=== PATIENT | female | born 1970 | race Caucasian/White ===

== ENCOUNTER 2018-10-20 | Emergency (ER) | payer OTHER ==
--- NOTE | 2018-10-20 22:27 | ED ---
General Adult HPI - General Chief complaint: Psychiatric Symptoms Stated complaint: overdose Time Seen by Provider: 10/20/18 21:45 Source: patient, EMS Mode of arrival: EMS Limitations: no limitations - History of Present Illness Initial comments: Shannan is a 47yo Female with PMH of substance abuse who presents to the emergency department today for evaluation possible overdose. Patient reports that she uses heroin on a daily basis, today she used and apparently became unresponsive her roommate called 911. EMS arrived on scene the patient had pulses depressed respirations pinpoint pupils. Patient was treated with IV Narcan and subsequently became awake alert and oriented. Patient denied any suicidality though she did admit that she is depressed, patient reports that she's never received any therapy or treatment after her 's and 2011 and she feels depressed. Patient also states that she is depressed over being addicted to heroin. She states she would like to quit. She would like outpatient resources. - Related Data Home Medications Medication Instructions Recorded Confirmed No Known Home Medications 10/20/18 10/20/18 Allergies Allergy/AdvReac Type Severity Reaction Status Date / Time No Known Allergies Allergy Verified 10/20/18 22:08 Review of Systems ROS Statement: Those systems with pertinent positive or pertinent negative responses have been documented in the HPI. ROS Other: All systems not noted in ROS Statement are negative. Past Medical History Past Medical History: No Reported History History of Any Multi-Drug Resistant Organisms: None Reported Past Surgical History: Section, Cholecystectomy Past Psychological History: Depression Smoking Status: Former smoker Past Alcohol Use History: Occasional Past Drug Use History: Heroin, IV Drug Use General Exam - General Exam Comments Initial Comments: Physical Exam GENERAL: Patient is well-developed and well-nourished. Patient is nontoxic and well- hydrated and is in no distress. HENT: Normocephalic, Atraumatic. EYES: PERRL, EOMI PULMONARY: Unlabored respirations. No audible rales rhonchi or wheezing was noted. CARDIOVASCULAR: There is a regular rate and rhythm without any murmurs gallops or rubs. ABDOMEN: Soft and nontender with normal bowel sounds. SKIN: Skin is clear with no lesions or rashes and otherwise unremarkable. : Deferred NEUROLOGIC: Patient is alert and oriented x3. Moving all extremities spontaneously MUSCULOSKELETAL: Normal extremities with adequate strength and full range of motion. No lower extremity swelling or edema. No calf tenderness. PSYCHIATRIC: Normal psychiatric evaluation Limitations: no limitations Course Vital Signs 10/20/18 10/20/18 21:40 22:58 Temperature 98.5 F Pulse Rate 112 H 92 Respiratory 18 18 Rate Blood Pressure 136/79 112/71 O2 Sat by Pulse 100 Oximetry Medical Decision Making - Medical Decision Making The patient was seen and evaluated, history is obtained on the patient and EMS and apparent accidental overdose on heroin, she was revived with Narcan she is now awake alert and oriented. Patient denies any suicidal or homicidal ideation. Patient was observed in the emergency department for a number of hours, she sl eeping comfortably but wakes to voice is appropriate and interactive continues to deny suicidal or homicidal ideation. Patient will be given printed referrals for outpatient psychiatric and substance abuse counseling. 3:30 AM patient is stable for discharge home however patient had arrived to the emergency department with minimal clothing and no shoes, she is awaiting her friend bring her shoes and clothing for discharge. Disposition Clinical Impression: Accidental heroin overdose Disposition: HOME SELF-CARE Condition: Stable Instructions (If sedation given, give patient instructions): Narcotic Use Disorder (ED) Is patient prescribed a controlled substance at d/c from ED?: No Referrals: None,Stated [Primary Care Provider] - 1-2 days
== END 2018-10-21 06:42 | disposition home or self-care (01) ==
CPT/HCPCS: 82075; 99284

== ENCOUNTER → 2019-12-12 | Outpatient (CLI) | payer OTHER ==
--- NOTE | 2019-12-12 09:23 | CT ---
EXAMINATION TYPE: CT lumbar spine wo con DATE OF EXAM: 12/12/2019 9:03 AM COMPARISON: None. HISTORY: Rt leg pain CT DLP: 757.3 mGycm Automated exposure control for dose reduction was used. Unenhanced CT of the lumbar spine was performed. Bone and soft tissue window settings are submitted as well as coronal and sagittal reconstructions. There are 5 lumbar type vertebra identified. Lumbar spine shows satisfactory alignment without eviden ce of acute fracture or dislocation. Vertebral body heights and disc space heights are fairly well-ma intained. Spinal canal grossly preserved on sagittal images. Minimal multilevel anterior and lateral spurring. Axial images at T12-L1 and L1-L2 levels are felt within normal limits. Axial images at L2-L3 and L3-L4 levels show mild broad disc bulges minimally effacing anterior sac, b ilateral neural foramina are patent. Axial images at L4-L5 level mild facet arthropathy bilaterally. There is mild broad-based posterior d isc protrusion. There is mild effacement of the posterior lateral thecal sac in the anterior thecal s ac on axial image 47. There is mild left-sided inferior neural foraminal narrowing. Axial images at the L5-S1 levels with mild facet arthropathy bilaterally. There is left paracentral d isc protrusion may be encroaching along the central left S1 nerve axial image 57. Bilateral neural fo ramina are patent. IMPRESSION: Mild degenerative changes in mid to lower lumbar spine as detailed above, no significant right-sided herniation is seen to account for patient's right-sided radiculopathy type symptoms.
== END | disposition home or self-care (01) ==
LOC: RADCTMAIN 08:01
PROVIDERS: ATTEND Family Medicine
DX: M47.816 Spondylosis without myelopathy or radiculopathy, lumbar region (principal); M47.817 Spondylosis without myelopathy or radiculopathy, lumbosacral region
CPT/HCPCS: 72131

== ENCOUNTER → 2019-12-26 | Outpatient (CLI) | payer OTHER ==
[2019-12-26 07:53] VITALS: BP 153/83; PULSE 86; RESP 18; TEMP 98.3
--- NOTE | 2019-12-26 08:15 | P.CONS ---
History of Present Illness - Reason for Consult Consult date: 12/26/19 - Chief Complaint right leg pain - History of Present Illness his is a 49-year-old lady with history of chronic lower back pain for at least 2 years with no precipitating events. The pain starts in the right buttock and goes down to the anterior thigh area to a few inches beneath her right knee. The patient occasionally feels pain in her back however her most intense pain is in the right leg. The patient denies any numbness or tingling in the right leg. She feels mild weakness in the leg with prolonged walking. Her pain gets worse by ambulation, walking and improves by sitting down and taking Motrin. The patient has never tried any injections on her back previously or any physical therapy. She denies any bowel or bladder dysfunction she also denies any weight loss. This pain occasionally wakes her up at night however it is not a main complaint. the patient still works full-time in a factory. Review of Systems Constitutional: Denies chills, Denies fever Ears, nose, mouth and throat: Denies headache, Denies sore throat Respiratory: Denies cough Musculoskeletal: Reports as per HPI Neurological: Reports as per HPI Endocrine: Denies fatigue, Denies weight change Past Medical History Past Medical History: No Reported History Additional Past Medical History / Comment(s): pain right buttocks radiating to right groin and down to right knee. History of Any Multi-Drug Resistant Organisms: None Reported Past Surgical History: Section, Cholecystectomy Past Anesthesia/Blood Transfusion Reactions: No Reported Reaction Past Psychological History: No Psychological Hx Reported Smoking Status: Former smoker Past Alcohol Use History: None Reported Additional Past Alcohol Use History / Comment(s): quit smoking 10 yrs ago (2009), smoked 1 pack q 3-4 days., smoked off and on since 19 yrs old. Past Drug Use History: None Reported Additional Drug Use History / Comment(s): denies - Past Family History Mother Family Medical History: No Reported History Medications and Allergies Home Medications Medication Instructions Recorded Confirmed Type No Known Home Medications 10/20/18 12/26/19 History Allergies Allergy/AdvReac Type Severity Reaction Status Date / Time No Known Allergies Allergy Verified 12/26/19 07:50 Physical Exam Vitals: Vital Signs Temp Pulse Resp BP 12/26/19 07:51 98.3 F 86 18 153/83 - Constitutional General appearance: obese - EENT Eyes: PERRLA - Integumentary Integumentary: no calor, no cellulitis, no cyanotic, no decreased turgor, no flushed, no jaundiced, no normal, no normal turgor, no pale, no rash, no ulcer - Neurologic neuro exam of the lower extremities showed: Decreased right knee reflex compared to the left side,absent left ankle reflex and normal right ankle reflex. Normal muscle strength in the lower extremities for knee flexion and extension and ankle flexion and extension and also for hip flexion bilaterally. No greater trochanter tenderness on the right side. No pain with internal and external rotation of the hip joints. Michi's test increases her thigh pain but did not cause any back pain. straight leg raising test negative bilaterally. No tenderness in the lumbar paravertebral musculature. Neurologic: CNII-XII intact - Psychiatric Psychiatric: A&O x's 3, appropriate affect, intact judgment & insight Results Results: lumbar spine computed tomography scan showed disc bulging at the L5-S1 level touching the left S1 nerve root. It also showed mild facet arthropathy at multiple levels. There was no pressure or any nerve roots on the right side which is the symptomatic side of the patient. Assessment and Plan Plan: this is a 49-year-old lady with history of right leg pain which starts from the right buttock down to a few inches beneath the right knee with no paresthesia and no significant weakness in the right lower extremity. The patient's computed tomography scan showed few changes on the left side which might explain the absence of her left ankle reflex however does not show any compression of a nerve root on the right side When the reason for that might be that the computed tomography scan is not a good mode to detect soft tissue changes and I think an MRI on the lumbar spine may be betterfor this reason. The patient may benefit from a course of physical therapy however she would like to try the injection first which I offered as lumbar epidural steroid injection at the L3 4 or L4 5 levels in the right paramedian approach under fluoroscopic guidance. If this injection does not help the patient then I might need to order an MRI on the lumbar spine. the patient is healthy otherwise she denies any history of diabetes and she denies taking any anticoagulants. I thank you for the referral
== END | disposition home or self-care (01) ==
LOC: PNWHC3 07:30
PROVIDERS: ATTEND Anesthesiology
DX: M79.661 Pain in right lower leg (principal); Z87.891 Personal history of nicotine dependence
CPT/HCPCS: 99211

== ENCOUNTER 2020-02-19 07:15 | Day surgery (SDC) | payer OTHER ==
[2020-02-15 15:12] VITALS: BMI 34.3
[~2020-02-19 07:15] MED LIST: LACTATED RINGERS 1,000 ML IV SCH
[2020-02-19 07:42] VITALS: TEMP 97.5
[2020-02-19] MEDS ORDERED: LIDOCAINE 1% (10MG/ML) FOR IV START INTRADERMA ONE (07:53)
[2020-02-19] MEDS ORDERED: ROPIVACAINE 5MG/ML 20ML VIAL ONE (08:37)
[2020-02-19] MEDS ORDERED: TRIAMCINOLONE ACETONIDE 40 MG/ML 1 ML VIAL ONE (08:37)
[2020-02-19] MEDS ORDERED: IOPAMIDOL M200 10 ML VIAL ONE (08:37)
[2020-02-19] MEDS ORDERED: MIDAZOLAM 2 MG/2 ML VIAL ONE (08:37)
[2020-02-19] MEDS ORDERED: fentaNYL (PF) 50 MCG/ML 2 ML AMP ONE (08:37)
--- NOTE | 2020-02-19 08:49 | P.PCN ---
Date of Procedure: 02/19/20 Surgeon: Pablo Azul Pathology: none sent Condition: stable Disposition: PACU Description of Procedure: PREOPERATIVE DIAGNOSIS: 1-Lumbar radiculopathy 2- Lumber Degenerative Disc Diseases. POSTOPERATIVE DIAGNOSIS: 1-Lumbar radiculopathy. 2-Lumbar Degenerative Disc Diseases PROCEDURE 1. Lumbar epidural steroid injection under fluoroscopic guidance at the L4-5 level in the right paramedian approach. 2. Lumbar epidurogram. ANESTHESIA: Local with 1% lidocaine; and IV moderate conscious sedation with Versed and fentanyl EBL: Minimal PROCEDURE INDICATION: The patient with low back pain and radiculitis symptoms unresponsive to conservative treatment. Fluoroscopy was used to optimize visualization of the needle placement and to maximize safety. PROCEDURE DESCRIPTION / TECHNIQUE: The patient was seen and identified in the preoperative area. Risks, benefits, complications including but not limited to infections ,bleeding ,allergic reaction to the medications ,nerve damage and not complete pain relief , and alternatives were discussed with the patient. The patient agreed to proceed with the procedure and signed the consent. IV was started, and vital signs were stable. Patient was taken to the OR and time out was completed. The patient was placed in the prone position on procedure table and a pillow was placed under the abdomen to reduce lumbar lordosis. The lumbosacral area was prepped and draped in the usual sterile fashion with ChloraPrep.Patient was closely monitored during the procedure. Conscious sedation was used during the procedure to decrease patients anxiety. Vital signs were monitered during the entire procedure. Using anterior-posterior fluoroscopy, the L4-5 interlaminar space was identified and the skin over this site was marked and then infiltrated with 1% lidocaine subcutaneously. Subsequently, a 20-gauge Tuohy epidural needle was inserted and advanced toward the epidural space using the Loss of resistance to air technique and guided by AP and lateral fluoroscopy. The correct needle position in the epidural space was verified with the injection of 1 mL of the water soluble contrast dye Omnipaque 180 contrast and observing an excellent epidurogram with the epidural spread of the dye, after negative aspiration for blood and CSF and in the absence of paresthesias. Again after negative aspiration, a 7 ml mixture containing 80 mg of Kenalog and 5 ml of preservative free Normal Saline, and 1 ml of preservative free ropivacaine 0.5% solution was injected and a washout of epidurogram was seen. Needle was withdrawn intact, skin was cleansed, and bandages were applied. patient tolerated procedure well and was transferred to PACU in stable condition.A copy of the needle placement picture was saved to the fluoroscopy machine. COMPLICATIONS: None DISPOSITION / PLANS: The patient was placed in a supine position and transferred to the recovery area in a stable condition for observation. There was no evidence of lower extremity motor or sensory deficit after the procedure. Patient was discharged from the recovery room after meeting discharge criteria. Home discharge instructions were given to the patient by the staff. The patient was reexamined prior to discharge. The patient will schedule a follow up in the clinic in 2-4 weeks.
[2020-02-19] MEDS ORDERED: IV FLUID CONTINUATION 1,000 ML IV ONE (08:52)
[2020-02-19 08:55] VITALS: RESP 18
[2020-02-19 09:11] VITALS: BP 127/82; PULSE 62
--- NOTE | 2020-02-19 12:49 | FL ---
Fluoroscopy INDICATION: Pain FINDINGS: Fluoroscopy time: 4 seconds. Images obtained: 2. IMPRESSIONS: 1. Documentation of fluoroscopy.
== END 2020-02-19 09:27 | disposition home or self-care (01) ==
LOC: ORPAIN 07:15
PROVIDERS: ATTEND Anesthesiology
DX: M51.16 Intervertebral disc disorders with radiculopathy, lumbar region (principal); E66.9 Obesity, unspecified; Z68.33 Body mass index [BMI] 33.0-33.9, adult
CPT/HCPCS: 84703; 62323; J2250; J3301; J3010; Q9966; J2795

== ENCOUNTER → 2020-03-18 | Day surgery (SDC) | payer OTHER ==
[2020-03-12 09:36] VITALS: BMI 33.8
[~2020-03-18] MED LIST changes: +IOPAMIDOL M200 10 ML VIAL ONE; +LACTATED RINGERS 1,000 ML IV ONE; -LACTATED RINGERS 1,000 ML IV SCH; +LIDOCAINE 1% (10MG/ML) FOR IV START INTRADERMA ONE; +MIDAZOLAM 2 MG/2 ML VIAL ONE; +fentaNYL (PF) 50 MCG/ML 2 ML AMP ONE; +methylPREDNISolone ACETATE 40 MG/ML 1 ML VIAL ONE
[2020-03-18 11:14] VITALS: RESP 16; TEMP 98
--- NOTE | 2020-03-18 11:26 | P.OP ---
Date of Procedure: 03/18/20 Preoperative Diagnosis: Lumbar radiculopathy Postoperative Diagnosis: Lumbar radiculopathy Procedure(s) Performed: Lumbar L4-L5 epidural steroid injection under fluoroscopic Anesthesia: MAC Surgeon: Gerry Singh Estimated Blood Loss (ml): 0 IV fluids (ml): 100 Urine output (ml): 0 Pathology: none sent Condition: stable Disposition: PACU Description of Procedure: Procedure: The patient was seen and identified in the preoperative area. Risks, benefits, complications, and alternatives were discussed with the patient. The patient agreed to proceed with the procedure and signed the consent. IV was started, and vital signs were stable. Patient was taken to the procedure area, and time out was completed. The patient was placed in the prone position on procedure table and a pillow was placed under the abdomen to reduce lumbar lordosis. The lumbosacral area was prepped and draped in the usual sterile fashion. Critical pause was taken. Vital signs were closely monitored during the procedure. Using anterior-posterior fluoroscopy, the L4-L5 interlaminar space was identified, and skin and deeper tissues were localized with 1% lidocaine. Using anterior-posterior fluoroscopy, lateral fluoroscopy, and [id number] technique, a 20 gauge 3.5 Tuohy epidural needle entered the epidural space. After negative aspiration of CSF and blood with no paresthesias, 1 ml of Ezmzof695 contrast dye was injected and an excellent epidurogram was seen. Again after negative aspiration of CSF and blood with no paresthesias, 10 mL of block solution was injected into the epidural space. Block solution contained 80 mg of Depo-Medrol, and 9 mL of preservative-free normal saline. Needle was withdrawn intact, skin was cleansed, and bandages were applied. COMPLICATIONS: None. DISPOSITION / PLANS: The patient was placed in a supine position and transferred to the recovery area in a stable condition for observation. Patient was discharged from the recovery room after meeting discharge criteria. Home discharge instructions given to the patient by the staff. The patient was reexamined prior to discharge. If it helpful plan to do another epidural repeat in 2-4 weeks duration. Plan - Discharge Summary Discharge Rx Participant: No New Discharge Prescriptions: No Action Ibuprofen [Motrin] 600 mg PO Q8HR PRN PRN Reason: Pain Discharge Medication List Ibuprofen [Motrin] 600 mg PO Q8HR PRN 01/28/20 [History] Discharge/Stand Alone Forms: [facility] Instructions
[2020-03-18 11:46] VITALS: BP 111/72; PULSE 68
--- NOTE | 2020-03-18 12:02 | FL ---
EXAMINATION TYPE: FL guided pain mgmt statistic DATE OF EXAM: 03/18/2020 HISTORY: Fluoroscopy time 3 seconds of fluoroscopy provided. IMPRESSION: 1. Fluoroscopy time.
== END ==
LOC: ORPAIN 10:38
DX: M51.16 Intervertebral disc disorders with radiculopathy, lumbar region (principal); Z98.891 History of uterine scar from previous surgery; Z90.49 Acquired absence of other specified parts of digestive tract
CPT/HCPCS: 81025; 62323; J2250; J1030; J3010; Q9966

== ENCOUNTER → 2020-04-14 | Outpatient (CLI) | payer OTHER ==
[2020-04-14 12:40] VITALS: BP 137/85; PULSE 96; RESP 18; TEMP 98.1
--- NOTE | 2020-04-14 12:52 | P.PN ---
Subjective Progress Note Date: 04/14/20 This is a follow-up visit for this 49 years old female with a chronic history of severe low back pain with radiation to the lower extremity, diagnosed with lumbar radiculopathy, degenerative disc disease and lumbar spondylosis, recently we did lumbar epidural steroid injections 2 she reported that her pain improved significantly she is able to ambulate without difficulty, she had 90% improvement of her pain, he continues to have some right hip pain with radiation to the medial aspect of the right Thigh , he denies any motor or sensory deficit she continue to use Motrin 800 mg when necessary Objective - Vital Signs Vital signs: Vital Signs Temp 98.1 F 04/14/20 12:37 Pulse 96 04/14/20 12:37 Resp 18 04/14/20 12:37 BP 137/85 04/14/20 12:37 Pulse Ox 99 04/14/20 12:37 - Exam Physical Examinations : -Constitutiona : Cooperative , not in acute distress . -HEENT : nech : supple , no Lymphadenopathy , normal thyroid size . : eyes : no ptosis , no icterus, no photophobia . - neurologic : Cranial nerve II to XII intact , no focal neurological deffecit . -psychatric : alert , oriented X 3 , appropriate affect , intact judgment and insight . -Lymphatic : no Lymphadenopathy . - musculoskeltal : . Lumber spine moter stegnth lower extremities ,thigh and legs 5/5 Right side , 5/5 Left side Assessment and Plan Plan: Assessment and plan=1-lumbar radiculopathy. 2-lumbar degenerative disc disease. 3-lumbar spondylosis. Patient improved after lumbar epidural steroid injections 2 she will follow up in the pain clinic when necessary - PQRS measures = - Patient's medications are documented in the chart. -Tobacco use is positive, and counseling.Given. -Patient's has not received pneumococcal vaccine. -Advanced care planning discussed, patient not eligible. -Opiate contract not signed. -Pain positive and follow-up visit/procedure is scheduled. -Patient's blood pressure measured [ 137/85 ] , and documented in the record ,and patient will follow up with the primary care. -Patient's weight was measured and body mass index [ ] above the, normal limits and counseling was done. and patient instructed to follow-up with the primary care physician. -Patient was not identified as an unhealthy alcohol user Time with Patient: Less than 30
== END | disposition home or self-care (01) ==
LOC: PNWHC3 12:30
PROVIDERS: ATTEND Specialist
DX: M51.16 Intervertebral disc disorders with radiculopathy, lumbar region (principal); M47.26 Other spondylosis with radiculopathy, lumbar region
CPT/HCPCS: 99211

== ENCOUNTER → 2020-10-17 | Outpatient (CLI) | payer OTHER | END | disposition home or self-care (01) | LOC: LABPAT 08:26 | PROVIDERS: ATTEND Orthopaedic Surgery | DX: Z53.9 Procedure and treatment not carried out, unspecified reason (principal) ==

== ENCOUNTER 2020-10-27 13:12 | Day surgery (SDC) | payer OTHER ==
[2020-10-17 09:52] LABS: Basophils # (A) 0.1 k/uL (0-0.2); Basophils % (A) 1 %; Eosinophils # (A) 0.2 k/uL (0-0.7); Eosinophils % (A) 3 %; HCT 40.5 % (34.0-46.0); HGB 13.3 gm/dL (11.4-16.0); Lymphocytes % (A) 39 %; MCHC 32.8 g/dL (31.0-37.0); MCV 97.5 fL (80.0-100.0); Mean Platelet Volume 7.9; Monocytes # (A) 0.3 k/uL (0-1.0); Monocytes % (A) 6 %; Neutrophils # (A) 2.4 k/uL (1.3-7.7); Neutrophils % (A) 48 %; Platelet Count 292 k/uL (150-450); RBC 4.15 m/uL (3.80-5.40); RDW 11.9 % (11.5-15.5); WBC 5.1 k/uL (3.8-10.6)
[2020-10-17 10:07] LABS: Potassium 4.4 mmol/L (3.5-5.1)
[2020-10-17 10:13] LABS: INR 0.9 (<1.2)
[2020-10-21 11:02] VITALS: BMI 32.8
--- NOTE | 2020-10-26 10:55 | HP ---
HISTORY AND PHYSICAL REASON FOR ADMISSION: Surgery 10/27/2020. Shannan Joiner is a 49-year-old patient seen with progressive symptomatic right hip osteoarthritis. We discussed options for treatment. She elected to proceed with right total hip arthroplasty. Consent was obtained. PAST MEDICAL HISTORY: Noncontributory. SURGICAL HISTORY: Cholecystectomy. MEDICATIONS: Ibuprofen. ALLERGIES: None reported. SOCIAL HISTORY: She denies tobacco use. PHYSICAL EXAMINATION: Evaluation of the right hip is limited range of motion with severe pain, diffuse tenderness about the hip girdle. Positive hip impingement sign. Straight leg raise is negative. Distal neurovascular exam is intact. RADIOGRAPHS: Right knee radiographs reveal severe osteoarthritic changes. IMPRESSION: Right hip osteoarthritis. PLAN: Direct anterior right total hip arthroplasty. Surgery 10/27/2020. MMODL / IJN: [id number] /
[~2020-10-27 13:12] MED LIST changes: +ACETAMINOPHEN TAB 500 MG TAB PO PRN; -IOPAMIDOL M200 10 ML VIAL ONE; -LACTATED RINGERS 1,000 ML IV ONE; -LIDOCAINE 1% (10MG/ML) FOR IV START INTRADERMA ONE; +LIDOCAINE 1% (10MG/ML) FOR IV START INTRADERMA PRN; +MELOXICAM 7.5 MG TAB PO PRN; -MIDAZOLAM 2 MG/2 ML VIAL ONE; +ROPIVACAINE/EPI/CLONIDINE/KET 50 ML SYRINGE MISCELLANE PRN; +TRANEXAMIC ACID 1,000 MG in SODIUM CHLORIDE 0.9% 100 ML IVPB PRN; -fentaNYL (PF) 50 MCG/ML 2 ML AMP ONE; -methylPREDNISolone ACETATE 40 MG/ML 1 ML VIAL ONE
[2020-10-27] MEDS ORDERED: ONDANSETRON 4 MG/2 ML VIAL ONE (13:53)
[2020-10-27] MEDS: LACTATED RINGERS 1,000 ML IV SCH ×4 (14:13→23:28)
[2020-10-27] MEDS ORDERED: DEXAMETHASONE SOD PHOSPHATE 4 MG/ML 1 ML VIAL IVP ONE (14:15)
[2020-10-27] MEDS ORDERED: SODIUM CHLORIDE 0.9% 100 ML BAG ONE (15:20)
[2020-10-27] MEDS ORDERED: PROPOFOL 10 MG/ML 20 ML VIAL IV ONE (15:20)
[2020-10-27] MEDS ORDERED: fentaNYL (PF) 50 MCG/ML 2 ML AMP ONE (15:20)
[2020-10-27] MEDS ORDERED: LIDOCAINE 1% INJ 10MG/ML (20 ML MDV) ONE (15:20)
[2020-10-27] MEDS ORDERED: MIDAZOLAM 2 MG/2 ML VIAL ONE (15:20)
[2020-10-27] MEDS ORDERED: KETAMINE 10 MG/ML 20 ML VIAL ONE (15:20)
[2020-10-27] MEDS ORDERED: TRANEXAMIC ACID 1,000 MG/10 ML VIAL ONE (15:20)
[2020-10-27] MEDS ORDERED: hydrOXYzine pamoate 25 MG CAP PO PRN (17:11)
[2020-10-27] MEDS ORDERED: ONDANSETRON 4 MG/2 ML VIAL IVP PRN (17:11)
[2020-10-27] MEDS ORDERED: HYDROmorphone 0.2 MG/1 ML SYRINGE IVP PRN (17:11)
[2020-10-27] MEDS ORDERED: NALOXONE 0.4 MG/ML 1 ML VIAL IV PRN (17:11)
[2020-10-27] MEDS ORDERED: ACETAMINOPHEN TAB 325 MG TAB PO PRN (17:11)
[2020-10-27] MEDS ORDERED: HYDROmorphone 1 MG/ML 1 ML SYRINGE IVP PRN (17:11)
[2020-10-27] MEDS ORDERED: HYDROmorphone 0.5 MG/0.5 ML SYRINGE IVP PRN (17:11)
--- NOTE | 2020-10-27 17:11 | P.OP ---
Date of Procedure: 10/27/20 Preoperative Diagnosis: Right hip osteoarthritis Postoperative Diagnosis: Right hip osteoarthritis Procedure(s) Performed: Direct anterior right total hip arthroplasty Implants: 1. Depuy [place] KA size 10 standard collar press fit femoral stem 2. Depuy [place] 54 mm press-fit acetabular shell 3. Depuy [place] neutral polyethylene acetabular liner 36 mm ID 54 mm OD 4. Biolox delta ceramic femoral head +5 36 mm Anesthesia: local, spinal Surgeon: Toney German Splicing Supervisor #1: Rome Pérez Estimated Blood Loss (ml): 85 Pathology: other (Femoral head) Condition: stable Disposition: PACU Indications for Procedure: 49-year-old patient seen with symptomatic right hip osteoarthritis. After we discussed options for treatment, she elected to proceed with direct anterior right total hip arthroplasty. Operative Findings: See description of procedure Description of Procedure: The patient was taken to the operative suite. Patient underwent a spinal anesthetic by the department of anesthesia. Patient was then transferred to the [place] table. Patient was given preoperative IV antibiotics and TXA. Both lower extremities were placed in standard leg spars. The hip was then prepped and draped in the normal sterile orthopedic fashion. A standard anterior incision was made beginning 3 cm lateral and 1 cm distal to the ASIS extending 10 cm. Dissection was then carried down through the subcutaneous soft tissues down to the fascia overlying the tensor fascia brad. An incision was now made through the fascia. Careful dissection was taken down exposing the tensor fascia brad muscle. A Cobra retractor was now placed along the medial femoral neck and a second one along the lateral femoral neck. The venous circumflex vessels were now identified, cauterized and clipped. We identified the anterior hip capsule. An incision was made through the hip capsule along the lateral border. I performed a partial anterior capsulectomy. Retractors were now placed around the femoral neck itself. A femoral neck cut was now made with a sagittal saw. It was completed with an osteotome at the lateral neck area. The femoral head was now removed without difficulty. The extremity was now rotated to 60 of external rotation. It was locked in position. Residual labrum was now debrided out. Serial reaming was performed of the acetabulum while Renaldo LARA assisted holding an anterior retractor for exposure. Once we reached the appropriate size and a trial was position and fit nicely. The appropriate size was now chosen opened and made available. It was introduced into the acetabulum without difficulty. The C-arm/fluoroscopy was now brought into the operative field. We made sure we had a true AP pelvic view. We now under direct C-arm/fluoroscopy introduced into the acetabular component with appropriate version and inclination. I held the cup in appropriate position well Renaldo LARA used a mallet to seat the acetabular component. I noted the component now to be well seated and stable. Acetabular cup introduce her was removed. The C-arm was pulled back. An appropriate liner was introduced and clicked into position. It was felt to be stable. At this point retractors were removed. The extremity was now placed into 140 external rotation with no traction. The leg was now dropped to the ground and adducted. Appropriate retractors were now positioned along the proximal femur. We also placed our femoral look into position. Additional capsular releasing was performed to gain access to the proximal femur. We now used a box osteotome. A canal finder was now utilized. Serial broaching was now performed with the assistance of Renaldo LARA tapping the broaches down with a mallet while held the broach in appropriate rotation and position. This was done until we reached the appropriate size with good overall rotational stability. Appropriate calcar planing was performed. A trial head/neck was placed into position. The hip was now reduced. The C- arm/fluoroscopy was brought back into the operative field. I obtained an AP pelvis demonstrating reasonable leg length positioning. I evaluated the trial component which appeared adequately sized. The C-arm/fluoroscopy was pulled back. Retractors were repositioned and the hip was dislocated. The leg was again taken down to the ground and adducted. Appropriate retractors were repositioned as well as the femoral hook. All trial components were removed. The femoral implant was opened along with the femoral head. The femoral implant was introduced on the appropriate handle into our pre-broached area. I held the component position well Renaldo LARA used a mallet to seat the femoral component. The femoral component was now noted to be well seated and stable.. The femoral head was introduced with good positioning and fixation noted. Retractors were now removed. The hip was now reduced. There appeared be good positioning of the hip confirmed on intraoperative fluoroscopy. Spot films were obtained to document this. A second gram of TXA was given. The deep and superficial soft tissues were infiltrated with local analgesic. Bipolar cautery had been utilized intermittently through the procedure for hemostasis. The wound was irrigated copiously with pulse lavage mechanical irrigation. The fascia was repaired with Vicryl suture. The subcutaneous soft tissues were repaired in layers with Vicryl suture. The skin was approximated with pernio/Dermabond. Sterile dressings were applied. Patient was then awakened, transferred to a bed and taken to recovery in stable condition. Renaldo LARA assisted with the complex procedure.
[2020-10-27] MEDS ORDERED: SENNOSIDES-DOCUSATE SODIUM 1 EACH TAB PO SCH (21:00)
[2020-10-28 00:25] LABS: Glucose,Whole Blood 159 mg/dL (75-99)
[2020-10-28] MEDS: traMADol 50 MG TAB PO PRN ×2 (05:36→12:16)
[2020-10-28 07:31] VITALS: BP 103/60; PULSE 58; RESP 18; TEMP 97.8
--- NOTE | 2020-10-28 08:32 | FL ---
EXAMINATION TYPE: FL guidance operating room DATE OF EXAM: 10/27/2020 HISTORY: Fluoroscopy time 23 seconds of fluoroscopy provided. IMPRESSION: 1. Fluoroscopy time.
--- NOTE | 2020-10-28 08:35 | XR ---
EXAMINATION TYPE: XR Hip Limited RT DATE OF EXAM: 10/27/2020 COMPARISON: NONE HISTORY: Postop TECHNIQUE: One view submitted. FINDINGS: There is postsurgical change in near anatomic alignment. There is soft tissue edema and emphysema. IMPRESSION: 1. Postoperative change. Appears in near-anatomic alignment.
[2020-10-28] MEDS ORDERED: ENOXAPARIN 40 MG/0.4 ML SYRINGE SQ SCH (09:00)
[2020-10-28] MEDS ORDERED: FAMOTIDINE 20 MG TAB PO SCH (09:00)
[2020-10-28] MEDS ORDERED: MELOXICAM 7.5 MG TAB PO SCH (09:00)
[2020-10-28 10:57] LABS: Basophils # (A) 0.04 X 10*3/uL (0.00-0.10); Basophils % (A) 0.3 %; Eosinophils # (A) 0.01 X 10*3/uL (0.04-0.35); Eosinophils % (A) 0.1 %; HCT 36.2 % (37.2-46.3); HGB 11.9 g/dL (12.0-15.0); Lymphocytes # (A) 1.92 X 10*3/uL (0.90-5.00); Lymphocytes % (A) 13.7 %; MCH 31.6 pg (27.0-32.0); MCHC 32.9 g/dL (32.0-37.0); MCV 96.3 fL (80.0-97.0); Mean Platelet Volume 10.9 fL (9.5-12.2); Monocytes # (A) 1.23 X 10*3/uL (0.20-1.00); Monocytes % (A) 8.8 %; Neutrophils # (A) 10.73 X 10*3/uL (1.80-7.70); Neutrophils % (A) 76.7 %; Platelet Count 307 X 10*3/uL (140-440); RBC 3.76 X 10*6/uL (4.10-5.20); RDW 11.6 % (11.5-14.5); WBC 13.99 X 10*3/uL (4.50-10.00)
[2020-10-28] MEDS: LACTATED RINGERS 1,000 ML IV SCH (11:49)
--- NOTE | 2020-10-28 12:14 | P.DS ---
Providers Date of admission: 10/27/2020 Expected date of discharge: 10/28/20 Attending physician: Toney German Consults: 10/27/20 17:11 Consult Physician Routine Consulting Provider: Mitchel Mark Reason/Comments: Medical management Do you want consulting provider notified?: Yes Primary care physician: Mitchel Mark [facility] Course: Date of admission: 10/27/2020 Date of discharge: 10/28/2020 Admission diagnosis: Right hip osteoarthritis Discharge diagnosis: Same Attending physician: Dr. German Surgical procedures: Right total hip arthroplasty Brief history: Patient is a 49-year-old female with a history of progressive primary right hip osteoarthritis. At this point patient has failed conservative treatment measures and has opted to proceed with a elective right total hip arthroplasty. Hospital course: Details of patient's surgery can be found in operative report. Patient tolerated the procedure well and was subsequently transported to orthopedic floor. Patient's orthopeidc and medical care was provided daily. Patient had daily laboratory tests performed for evaluation of overall blood counts. Patient had daily physical therapy to include strengthening range of motion as well as education with walker ambulation. Patient was treated with Lovenox for their postoperative DVT prophylaxis during their inpatient stay. Patient was noted to have a relatively uneventful postoperative course. Patient reported satisfactory pain control with oral pain medications by postoperative day 1. Patient showed satisfactory progress with physical therapy. Patient moved steadily through the program and had no difficulty meeting the goals by postoperative day 1. Given patient's otherwise satisfactory course and having met physical therapy goals, plan is to discharge patient home on postoperative day 1. Discharge condition/disposition: Patient will be discharged home in stable condition. Discharge medications: Instructions are given on resumption of patient's normal daily medications per primary care recommendation, in addition patient will be prescribed tramadol 50 mg; aspirin 81 mg twice a day 30 days. Discharge instructions: 1. Wound care and infection precautions, keep incision dry and covered while showering, no lotions, creams, moisturizers. No soaking, tubs, pools, hottubs. Do not scrub over the incision. 2. Weight-bear as tolerated with walker / cane until follow-up. 3. Ice and elevate when necessary. Do not exceed 20 minutes per hour with ice pack. 4. Utilize compression sleeve until seen at first follow up appointment. 5. Visiting nursing care. 6. Home physical therapy. 7. Pain meds and anticoagulants per prescription. 8. Pain medication has potential to cause constipation. Increase oral fluid and fiber intake. Contact primary care provider if you have not had a bowel movement within 48 hours after discharge 9. No anti-inflammatory medication until discussed at first post operative visit, this including Motrin, Aleve, Mobic, Diclofenac. 10. Follow up in office at 2 weeks postop with Renaldo Préez PA-C / Antony Fofana PA-C 11. Follow up with your primary care doctor 7-10 days after discharge. 12. Contact [facility] with any questions, . Assessment: Right hip osteoarthritis Procedures: Right total hip arthroplasty Patient Condition at Discharge: Good Plan - Discharge Summary Discharge Rx Participant: Yes New Discharge Prescriptions: New Aspirin [Adult Low Dose Aspirin EC] 81 mg PO BID #60 tablet. traMADol HCl [Ultram] 50 mg PO Q6HR PRN #32 tab PRN Reason: Pain No Action Ibuprofen [Motrin] 600 mg PO Q8HR PRN PRN Reason: Pain Discharge Medication List Ibuprofen [Motrin] 600 mg PO Q8HR PRN 01/28/20 [History] Aspirin [Adult Low Dose Aspirin EC] 81 mg PO BID #60 tablet. 10/28/20 [Rx] traMADol HCl [Ultram] 50 mg PO Q6HR PRN #32 tab 10/28/20 [Rx] Follow up Appointment(s)/Referral(s): Mitchel Mark MD [Primary Care Provider] - 1 Week [facility], [NON-STAFF] - As Needed Rome Pérez PAC [PHYSICIAN STALLION KEEPER] - 11/14/20 11:20 am Activity/Diet/Wound Care/Special Instructions: Orthopedic Discharge Instructions: 1. Wound care and infection precautions, [keep incision dry and covered while showering], no lotions, creams, moisturizers. No soaking, pools, hot tubs. Do not scrub over incision. 2. Weight-bear [as tolerated] with walker / cane until follow-up. 3. Ice and elevate when necessary. Do not exceed 20 minutes per hour with ice pack. 4. Utilize compression sleeve until seen at first follow up appointment. 5. Pain meds and anticoagulants per prescription. 6. Pain medication has potential to cause constipation. Increase oral fluid and fiber intake. Contact primary care provider if you have not had a bowel movement within 48 hours after discharge. 7. No anti-inflammatory medication until discussed at first post operative visit, this including Motrin, Aleve, Mobic, Diclofenac. 8. Follow up in office at 2 weeks postop with Renaldo Pérez PA-C / Antony Fofana PA-C 9. Follow up with your primary care doctor 7-10 days after discharge. 10. Contact [facility] with any questions, . Keep silver foam dressing on for first 7-10 days. While showering, cover silver foam dressing with Saran wrap. Discharge Disposition: HOME WITH HOME HEALTH SERVICES
--- NOTE | 2020-10-28 14:37 | P.PN ---
Subjective Progress Note Date: 10/28/20 Principal diagnosis: Right hip osteoarthritis Patient examined at bedside this morning. Patient doing well and ready to go home. Patient says physical therapy went well and she was able to walk in the white and UP-and-down a couple steps. Patient says she has not had a bowel mo vement yet, however, she says she has passed gas. Patient says she has been using incentive spirometer as well. Patient denies chest pain, fever, shortness breath, nausea, vomiting, change in vision, loss of bowel/bladder control. Objective - Vital Signs Vital signs: Vital Signs Temp 97.8 F 10/28/20 07:07 Pulse 58 L 10/28/20 07:07 Resp 18 10/28/20 07:07 BP 103/60 10/28/20 07:07 Pulse Ox 100 10/28/20 07:07 Intake & Output 10/27/20 10/28/20 10/28/20 18:59 06:59 18:59 Intake Total 850 Output Total 85 Balance 765 Weight 87.498 kg Intake: IV 850 Output: Estimated Blood Loss 85 Other: # Voids 1 - Exam Right hip: Incision is clean, dry, and intact. The silver foam tape is in good condition. There is minimal soft tissue swelling and ecchymosis surrounding the medial and lateral aspects of the incision. Calf is soft, no tenderness with palpation. Plantar flexion, dorsiflexion, EHL, FHL are intact. Sensory exam to light touch throughout the extremity is intact, dorsal pedis pulses 2+. - Labs CBC & Chem 7: 10/28/20 07:49 10/17/20 09:07 Labs: Abnormal Lab Results - Last 24 Hours (Table) 10/28/20 10/28/20 Range/Units 00:24 07:49 WBC 13.99 H (4.50-10.00) X 10*3/uL RBC 3.76 L (4.10-5.20) X 10*6/uL Hgb 11.9 L (12.0-15.0) g/dL Hct 36.2 L (37.2-46.3) % Immature Gran # 0.06 H (0.00-0.04) X 10*3/uL Neutrophils # 10.73 H (1.80-7.70) X 10*3/uL Monocytes # 1.23 H (0.20-1.00) X 10*3/uL Eosinophils # 0.01 L (0.04-0.35) X 10*3/uL POC Glucose (mg/dL) 159 H (75-99) mg/dL Assessment and Plan Assessment: Postoperative day #1 status post right hip arthroplasty Plan: 1. Right hip osteoarthritis - right total hip arthroplasty performed yesterday, 10/27/2020. Patient stable this morning will be discharged home today 2. Appreciate medical management 3. Pain management - patient going home with tramadol 50 mg. 4. GI prophylaxis - senna 5. DVT prophylaxis - Lovenox in hospital. Aspirin 81 mg twice a day 30 days when at home 6. Encourage incentive spirometer 7. PT/OT - weightbearing as tolerated with walker for assistance 8. Discharge planning - plan discharge home today, 10/29/2019. Time with Patient: Less than 30
== END 2020-10-28 14:04 | disposition home health service (06) ==
LOC: OR 13:12 → 4SSUR 16:55 → OR 10-28 14:04
PROVIDERS: ATTEND Orthopaedic Surgery
DX: M16.11 Unilateral primary osteoarthritis, right hip (principal)
CPT/HCPCS: 27130; 97161; 81025; 86900; 86901; 80051; 85025 ×2; 85610; 86850; 88300; 87070; 73501; C1776; J2250; J1100; J0690 ×2; J2405; J2001; J1650; J3010; J2704; J1170

== ENCOUNTER → 2021-01-06 | Outpatient (CLI) | payer OTHER ==
--- NOTE | 2021-01-06 14:32 | XR ---
EXAMINATION TYPE: XR ankle complete LT, XR foot complete LT DATE OF EXAM: 01/06/2021 CLINICAL HISTORY: Trip and fall injury with pain TECHNIQUE: Frontal, lateral and oblique images of the left ankle and foot are obtained. COMPARISON: None. FINDINGS: There is no acute fracture/dislocation evident in the left ankle. The ankle mortise appea rs within normal limits. Mild soft tissue swelling over the medial malleolus. There is no acute fracture or dislocation evident in the left foot. Tiny superior calcaneal spur. Th e joint spaces in the left foot are preserved. Overlying soft tissue is unremarkable. IMPRESSION: There is no acute fracture or dislocation in the left ankle or foot.
--- NOTE | 2021-01-06 14:44 | XR ---
Bilateral wrists HISTORY: Trauma and pain 4 views of the left wrist and 4 views of the right wrist are submitted No comparisons Bone mineralization, joint spaces and alignment are maintained. Possible geode formation present in m ultiple carpal bones. Some mild arthropathy present at the carpometacarpal joint of the first digits. IMPRESSION: No fracture or dislocation.
--- NOTE | 2021-01-06 14:47 | XR ---
Bilateral knees HISTORY: S63.509A, S80.00XA, S93.402A, S93.602A 3 views of each knee submitted, no comparisons Bone mineralization, joint spaces and alignment are maintained, sclerotic focus noted in the posterio r distal left metaphysis of the femur and shows a nonaggressive appearance. Suprapatellar increased a ttenuation present may be indicative of joint effusions. IMPRESSION: No fracture or dislocation in either knee. Additional findings above.
== END | disposition home or self-care (01) ==
LOC: RADXRMAIN 13:53
PROVIDERS: ATTEND Emergency Medicine
DX: S63.509A Unspecified sprain of unspecified wrist, initial encounter (principal); S80.00XA Contusion of unspecified knee, initial encounter; S93.402A Sprain of unspecified ligament of left ankle, initial encounter; S93.602A Unspecified sprain of left foot, initial encounter; X58.XXXA Exposure to other specified factors, initial encounter

== ENCOUNTER → 2021-05-28 | Outpatient (CLI) | payer BC ==
--- NOTE | 2021-05-28 16:27 | XR ---
Left femur HISTORY: Pain Frontal lateral views the left femur submitted on 4 images Correlation to left knee 01/06/2021 Bone mineralization, joint spaces and alignment are maintained. Soft tissue spherical calcification i n the proximal left thigh laterally likely represents injection granuloma. IMPRESSION: Normal left femur.
[2021-05-28 23:02] LABS: Basophils # (A) 0.07 X 10*3/uL (0.00-0.10); Basophils % (A) 1.1 %; Eosinophils # (A) 0.21 X 10*3/uL (0.04-0.35); Eosinophils % (A) 3.2 %; HCT 36.8 % (37.2-46.3); HGB 11.8 g/dL (12.0-15.0); Immature Grans, Automated 0.2 %; Lymphocytes # (A) 2.52 X 10*3/uL (0.90-5.00); Lymphocytes % (A) 38.4 %; MCHC 32.1 g/dL (32.0-37.0); MCV 96.6 fL (80.0-97.0); Mean Platelet Volume 11.6 fL (9.5-12.2); Monocytes # (A) 0.46 X 10*3/uL (0.20-1.00); NRBC Per 100 WBC 0 /100 WBCS (0.0-0.0); Neutrophils # (A) 3.29 X 10*3/uL (1.80-7.70); Neutrophils % (A) 50.1 %; Platelet Count 251 X 10*3/uL (140-440); RBC 3.81 X 10*6/uL (4.10-5.20); RDW 12.1 % (11.5-14.5); WBC 6.56 X 10*3/uL (4.50-10.00)
[2021-05-29 01:03] LABS: African American GFR (CKD) 116.7 (60.0-200.0); Albumin 4.2 g/dL (3.8-4.9); Albumin/Globulin Ratio 1.39 (1.60-3.17); Anion Gap 11.9 mmol/L (10.00-18.00); BUN/Creat Ratio 25.81 Ratio (12.00-20.00); Blood Urea Nitrogen 17.5 mg/dL (9.0-27.0); Calcium 8.8 mg/dL (8.7-10.3); Carbon Dioxide 20.1 mmol/L (20.0-27.5); Non-African American GFR(CKD) 100.7 (60.0-200.0); Potassium 3.7 mmol/L (3.5-5.5); T4, Free (Free Thyroxine) 1.16 ng/dL (0.800-1.800); Total Bilirubin 0.5 mg/dL (0.30-1.20); Total Protein 7.2 g/dL (6.2-8.2); Triglycerides 42.2 mg/dL (0.00-149.00)
[2021-05-29 01:37] LABS: Chol/HDL Ratio 3.22 Ratio
== END | disposition home or self-care (01) ==
LOC: LABWHC1 14:17
PROVIDERS: ATTEND Family Medicine
DX: Z00.00 Encounter for general adult medical examination without abnormal findings (principal); I10 Essential (primary) hypertension; Z79.899 Other long term (current) drug therapy
CPT/HCPCS: 36415; 80053; 80061; 83036; 83721; 84439; 84443; 85025

== ENCOUNTER 2022-03-08 07:49 | Emergency (ER) | payer BC ==
[2022-03-08 07:57] VITALS: BP 144/90; PULSE 95; RESP 16; TEMP 98.1
[2022-03-08] MEDS ORDERED: Acetaminophen-Codeine 300-30mg TAB PO STA (08:08)
--- NOTE | 2022-03-08 08:26 | XR ---
EXAMINATION TYPE: XR lumbar spine 2 or 3V DATE OF EXAM: 03/08/2022 Comparison: CT 12/12/2019 Clinical History: 51-year-old female pain after Injury Findings: Cholecystectomy clips. 5 lumbar type vertebral bodies. SI joints appear symmetric and intact. There i s facet arthropathy throughout. Degenerative grade 1 retrolisthesis L1-L2 and L2-L3 redemonstrated bu t may be slightly more pronounced from the 2020 exam. Mild multilevel degenerative disc disease. Vert ebral body heights are preserved and alignment is otherwise maintained. Impression: Facet arthropathy throughout with degenerative grade 1 retrolisthesis at L1-L2 and L2-L3 slightly mor e pronounced from 2020. Mild multilevel degenerative disc disease. No vertebral compression collapse.
--- NOTE | 2022-03-08 08:45 | ED ---
Back Pain HPI - General Chief Complaint: Back Pain/Injury Stated Complaint: Back Pain Time Seen by Provider: 03/08/22 08:02 Source: patient, RN notes reviewed Limitations: no limitations - History of Present Illness Initial Comments: This is a 51-year-old female who presents to the emergency department for lower back pain. She was taking a bath this morning, when she feels like she may have turned the wrong way and subsequently acquired lower back pain. She is still able to ambulate without difficulty. Denies any loss of bowel/bladder control or saddle anesthesia. Denies any fevers, chills, sore throat, cough, dyspnea, chest pain, palpitations, abdominal pain, nausea, vomiting, diarrhea, or headaches. MD Complaint: back pain, back injury - Related Data Home Medications Medication Instructions Recorded Confirmed Ibuprofen [Motrin] 800 mg PO DAILY 03/08/22 03/08/22 Previous Rx's Medication Instructions Recorded Lidocaine 5% Patch [Lidoderm 5% 1 each TP DAILY PRN #30 patch 03/08/22 Patch] Allergies Allergy/AdvReac Type Severity Reaction Status Date / Time No Known Allergies Allergy Verified 03/08/22 09:14 Review of Systems ROS Statement: Those systems with pertinent positive or pertinent negative responses have been documented in the HPI. ROS Other: All systems not noted in ROS Statement are negative. Past Medical History Past Medical History: No Reported History Additional Past Medical History / Comment(s): pain in R hip History of Any Multi-Drug Resistant Organisms: None Reported Past Surgical History: Section, Cholecystectomy, Joint Replacement Additional Past Surgical History / Comment(s): pain [facility] steriod injection, rt hip replacement 2020 Past Anesthesia/Blood Transfusion Reactions: No Reported Reaction Past Psychological History: No Psychological Hx Reported Smoking Status: Former smoker Past Alcohol Use History: None Reported Past Drug Use History: None Reported - Past Family History Mother Family Medical History: Cancer General Exam Limitations: no limitations General appearance: alert, in no apparent distress Head exam: Present: atraumatic, normocephalic, normal inspection Respiratory exam: Present: normal lung sounds bilaterally. Absent: respiratory distress, wheezes, rales, rhonchi, stridor Cardiovascular Exam: Present: regular rate, normal rhythm, normal heart sounds. Absent: systolic murmur, diastolic murmur, rubs, gallop, clicks Back exam: Present: normal inspection, full ROM, tenderness (left lower back) Neurological exam: Present: alert, oriented X3, CN II-XII intact Psychiatric exam: Present: normal affect, normal mood Skin exam: Present: warm, dry, intact, normal color. Absent: rash Course Vital Signs 03/08/22 07:53 Temperature 98.1 F Pulse Rate 95 Respiratory 16 Rate Blood Pressure 144/90 O2 Sat by Pulse 100 Oximetry Medical Decision Making - Medical Decision Making This is a 51-year-old female who presents to the emergency department for back pain. Was pt. sent in by a medical professional or institution? @ -No Did you speak to anyone other than the patient for history? @ -No Did you review nursing and triage notes? @ -Agree, accurate with regards to the patient's symptoms. Were old charts reviewed? @ -No Differential Diagnosis? @ -Differential Back Pain: Strain, zoster, cauda equina syndrome, epidural abscess, vertebral osteomyelitis, discitis, fracture, subluxation, disc herniation, DJD, spinal stenosis, dissection, AAA, pancreatitis, peptic ulcer disease, pyelonephritis, kidney stone, this is not meant to be an all-inclusive list.seizure] X-rays interpreted by me (1pt min.)? @ -My interpretation identifies multiple degenerative changes and no evidence of acute fractures or dislocations. What testing was considered but not performed? (CT, X-rays, U/S, labs)? Why? @ None What meds were considered but not given? Why? @ -None Did you discuss the management of the patient with other professionals? @ -No Did you reconcile home meds? @ -No Was smoking cessation discussed for >3mins.? @ -No Was critical care preformed (if so, how long)? @ -No Were there social determinants of health that impacted care today? How? (Homelessness, low income, unemployed, alcoholism, drug addiction, transp ortation, low edu. Level, literacy, decrease access to med. care, penitentiary, rehab)? @ -No Was there de-escalation of care discussed even if they declined? (Discuss DNR or withdrawal of care, Hospice)? @ -No What co-morbidities impacted this encounter? (DM, HTN, Smoking, COPD, CAD, Cancer, CVA, Hep., AIDS, mental health diagnosis, sleep apnea, morbid obesity)? @ -None Was patient admitted / discharged? @ -Discharged. X-ray of the lumbar spine obtained with my interpretation listed above. Tylenol #3 was administered and a lidocaine patch was applied. Prescription for lidocaine patches provided. Advised she alternate with ibuprofen and Tylenol as needed for pain relief. Also advised applying ice for 10-15 minutes every 2-3 hours for the first 2-3 days followed by heat there afterwards. Drug Therapy requiring intensive monitoring for toxicity (Heparin, Nitro, Insulin, Cardizem)? @ -None Were any procedures done? @ -No Diagnosis/symptom? @ -Lumbar strain Acute, or Chronic, or Acute on Chronic? @ -Acute Uncomplicated (without systemic symptoms) or Complicated (systemic symptoms)? @ -uncomplicated. Side effects of treatment? @ -Adverse reaction to the lidocaine patches Exacerbation, Progression, or Severe Exacerbation] @ -Not applicable. Poses a threat to life or bodily function? @ -If the back pain worsens or progresses, her daily function may be limited by pain. Return precautions reviewed in depth, the patient is instructed to return to the emergency department with any new, worsening, or concerning symptoms. Patient v erbalized understanding. This case was discussed in detail with the attending ED physician. Presentation, findings, and treatment plan discussed in detail as well. - Radiology Data Radiology results: report reviewed, image reviewed Disposition Clinical Impression: Strain of lumbar region Disposition: HOME SELF-CARE Instructions (If sedation given, give patient instructions): Low Back Strain (ED), Acute Low Back Pain (ED) Additional Instructions: Return to the emergency department with any new, worsening, or concerning symptoms, especially if you develop loss of bowel/bladder control or numbness/tingling in the pelvis area. Alternate with ibuprofen and Tylenol as needed for pain relief. Apply ice for 10-15 minutes every 2-3 hours. Follow up with your primary care provider in 1-2 days. Prescriptions: Lidocaine 5% Patch [Lidoderm 5% Patch] 1 each TP DAILY PRN #30 patch PRN Reason: Pain Is patient prescribed a controlled substance at d/c from ED?: No Referrals: Mitchel Mark MD [Primary Care Provider] - 1-2 days
[2022-03-08] MEDS ORDERED: LIDOCAINE 5% PATCH TOPICAL SCH (09:00)
== END 2022-03-08 09:15 | disposition home or self-care (01) ==
LOC: EC 07:49
DX: S39.012A Strain of muscle, fascia and tendon of lower back, initial encounter (principal); Z87.891 Personal history of nicotine dependence; X50.0XXA Overexertion from strenuous movement or load, initial encounter; Y92.002 Bathroom of unspecified non-institutional (private) residence as the place of occurrence of the external cause
CPT/HCPCS: 72100; 99284

== ENCOUNTER 2022-04-14 12:15 | Emergency (ER) | payer BC ==
[2022-04-14 13:01] LABS: Basophils # (A) 0.1 k/uL (0-0.2); Basophils % (A) 1 %; Eosinophils # (A) 0.2 k/uL (0-0.7); Eosinophils % (A) 2 %; HCT 38.8 % (34.0-46.0); Lymphocytes # (A) 2.4 k/uL (1.0-4.8); Lymphocytes % (A) 35 %; MCH 30.9 pg (25.0-35.0); MCHC 33.5 g/dL (31.0-37.0); MCV 92.2 fL (80.0-100.0); Mean Platelet Volume 7.9; Monocytes # (A) 0.3 k/uL (0-1.0); Monocytes % (A) 5 %; Neutrophils # (A) 3.8 k/uL (1.3-7.7); Neutrophils % (A) 55 %; Platelet Count 268 k/uL (150-450); RBC 4.21 m/uL (3.80-5.40); RDW 12.1 % (11.5-15.5); WBC 6.8 k/uL (3.8-10.6)
[2022-04-14 13:09] LABS: ALT 33 U/L (4-34); AST 31 U/L (14-36); African American GFR (CKD) >90 (>60 ml/min/1.73 sqM); Albumin 4.3 g/dL (3.5-5.0); Alkaline Phosphatase 72 U/L (38-126); Anion Gap 6 mmol/L; Blood Urea Nitrogen 13 mg/dL (7-17); Calcium 8.6 mg/dL (8.4-10.2); Carbon Dioxide 24 mmol/L (22-30); Chloride 109 mmol/L (98-107); Glucose 95 mg/dL (74-99); Magnesium 1.9 mg/dL (1.6-2.3); Non-African American GFR(CKD) >90 (>60 ml/min/1.73 sqM); Potassium 3.7 mmol/L (3.5-5.1); Sodium 139 mmol/L (137-145); Total Bilirubin 0.4 mg/dL (0.2-1.3); Total Protein 7.9 g/dL (6.3-8.2)
[2022-04-14] MEDS ORDERED: ASPIRIN 81 MG PO STA (13:09)
--- NOTE | 2022-04-14 13:14 | XR ---
EXAMINATION TYPE: XR chest 2V DATE OF EXAM: 04/14/2022 COMPARISON: NONE TECHNIQUE: PA and lateral views submitted. HISTORY: Arrhythmia FINDINGS: The lungs are clear and there is no pneumothorax, pleural effusion, or focal pneumonia. Heart size normal and no overt failure. Osseous structures intact. IMPRESSION: 1. No acute process.
[2022-04-14 13:34] LABS: INR 0.9 (<1.2); Partial Thromboplastin Time 24.1 sec (22.0-30.0)
--- NOTE | 2022-04-14 14:32 | ED ---
General Adult HPI - General Chief complaint: Arrhythmia/Palpitations Stated complaint: palpitations Time Seen by Provider: 04/14/22 12:35 Source: patient, RN notes reviewed, old records reviewed Mode of arrival: ambulatory Limitations: no limitations - History of Present Illness Initial comments: Patient is a 51-year-old female who presents emergency Department complaining of heart palpitations. States have been ongoing for multiple months. Has been no more noticeable over the last few weeks. She feels like her heart is racing and then also feels an intermittent beat. States it is usually when she is resting. Denies any cardiac history otherwise. Called her PCP who sent her in for further evaluation. She denies any usman chest pain, shortness breath, abdominal pain, nausea, vomiting, fevers, chills, cough. No other acute complaints at this time. Presents for further evaluation. No history of blood clots. No lower extremity swelling. - Related Data Home Medications Medication Instructions Recorded Confirmed Ibuprofen [Motrin] 800 mg PO DAILY 03/08/22 03/08/22 Previous Rx's Medication Instructions Recorded Lidocaine 5% Patch [Lidoderm 5% 1 each TP DAILY PRN #30 patch 03/08/22 Patch] Allergies Allergy/AdvReac Type Severity Reaction Status Date / Time No Known Allergies Allergy Verified 04/14/22 12:21 Review of Systems ROS Statement: Those systems with pertinent positive or pertinent negative responses have been documented in the HPI. Review of Systems: CONST: Denies fever EYES: Denies blurry vision ENT: Denies nasal congestion C/V: Endorses palpitations RESP: Denies shortness of breath GI: Denies abdominal pain : Denies dysuria SKIN: Denies rash. MSK: Denies joint pain. NEURO: Denies headache ROS Other: All systems not noted in ROS Statement are negative. Past Medical History Past Medical History: No Reported History Additional Past Medical History / Comment(s): pain in R hip History of Any Multi-Drug Resistant Organisms: None Reported Past Surgical History: Section, Cholecystectomy, Joint Replacement Additional Past Surgical History / Comment(s): [facility] steriod injection, rt hip replacement 2020 Past Anesthesia/Blood Transfusion Reactions: No Reported Reaction Past Psychological History: No Psychological Hx Reported Smoking Status: Former smoker Past Alcohol Use History: None Reported Past Drug Use History: None Reported - Past Family History Mother Family Medical History: Cancer General Exam - General Exam Comments Initial Comments: General: Appears in no acute distress. HEAD: Normal with no signs of head trauma. EYES: PERRLA, EOMI, conjunctiva normal, no discharge. ENT: Hearing grossly intact, normal oropharynx. RESPIRATORY: Clear breath sounds bilaterally. No wheezes, rales, or rhonchi. C/V: Regular rate and rhythm. S1 and S2 auscultated, no edema, peripheral pulses 2+ and intact throughout ABD: Abd is soft, nontender, nondistended EXT: Normal range of motion, no obvious deformity SKIN: No rashes or lesions observed on exposed skin. NEURO: Alert and oriented x 4. Cranial nerves II-XII intact. No focal sensory or strength deficits. Limitations: no limitations Course Vital Signs 04/14/22 12:16 Temperature 98.1 F Pulse Rate 67 Respiratory 16 Rate Blood Pressure 135/79 O2 Sat by Pulse 100 Oximetry Medical Decision Making - Medical Decision Making Based on the patient's presentation and physical exam, I'm concerned for possible cardiopulmonary etiology for her current symptoms. This does appear to be somewhat chronic. Patient does have PVCs on the monitor, and she states she feels the palpitations when a PVC is present. They're intermittent. This is likely the cause of her symptoms, however we will obtain cardiopulmonary labs. She was in agreement this plan. Vital signs are within acceptable limits. She will be given 324 mg of aspirin. EKG shows PVCs but no signs of acute ischemia. Laboratory studies are within acceptable limits including undetectable troponin, d-dimer within normal limits, normal TSH. Electrolytes within acceptable limits as well. Chest x-ray shows no acute cardio pulmonary process, infiltrate. On reevaluation, patient remains the same. Asymptomatic. We discussed her workup. I believe it is safe for her to be discharged home with close follow- up. She was in agreement this plan. I recommended that she follow up with gis developer as well. Patient will contact her PCP and arrange for this. I instructed the patient to follow up with their PCP in the next 1-3 days. I explained that the patient should return to the emergency department if they experience any worsening symptoms. Strict return precautions were discussed with the patient. The patient expressed understanding of these instructions. I answered all questions that the patient had. The patient was discharged home in good condition with their prescriptions and follow up information. Was pt. sent in by a medical professional or institution ([facility], AIR BRAKE OPERATOR, urgent care, hospital, or jail...) When possible be specific @ -Yes, her PCP sent her in for further evaluation due to concern for her palpitations Did you speak to anyone other than the patient for history (EMS, parent, family, police, friend...)? What history was obtained from this source @ -No Did you review nursing and triage notes (agree or disagree)? Why? @ -I reviewed and agree with nursing and triage notes Were old charts reviewed (outside hosp., previous admission, EMS record, old EKG, old radiological studies, urgent care reports/EKG's, jail records)? Report findings @ -Yes, old charts from October 2020 reviewed including EKG. Differential Diagnosis (chest pain, altered mental status, abdominal pain women, abdominal pain men, vaginal bleeding, weakness, fever, dyspnea, syncope, headache, dizziness, GI bleed, back pain, seizure, CVA, palpatations, mental health)? @ -Differential Chest Pain: Stable Angina, Unstable Angina, STEMI, NSTEMI Aortic Dissection, Pneumothorax, Musculoskeletal, Esophageal Spasm GERD, Cholecystitis, Pancreatitis, Zoster, this is not meant to be an all-inclusive list. EKG interpreted by me (3pts min.). @ -As above X-rays interpreted by me (1pt min.). @ -Chest x-ray shows no acute cardio pulmonary process. CT interpreted by me (1pt min.). @ -None done U/S interpreted by me (1pt. min.). @ -None done What testing was considered but not performed or refused? (CT, X-rays, U/S, labs)? Why? @ -None What meds were considered but not given or refused? Why? @ -None Did you discuss the management of the patient with other professionals (professionals i.e. [facility]jo, AIR BRAKE OPERATOR, lab, RT, psych nurse, psychiatric social worker supervisor, outreach rep, teacher, chief financial officer, correctional case records supervisor)? Give summary @ -No Was smoking cessation discussed for >3mins.? @ -No Was critical care preformed (if so, how long)? @ -No Were there social determinants of health that impacted care today? How? (Homelessness, low income, unemployed, alcoholism, drug addiction, transportation, low edu. Level, literacy, decrease access to med. care, shelter, rehab)? @ -No Was there de-escalation of care discussed even if they declined (Discuss DNR or withdrawal of care, Hospice)? DNR status @ -No What co-morbidities impacted this encounter? (DM, HTN, Smoking, COPD, CAD, Cancer, CVA, ARF, Chemo, Hep., AIDS, mental health diagnosis, sleep apnea, morbid obesity)? @ -None Was patient admitted / discharged? Hospital course, mention meds given and route, prescriptions, significant lab abnormalities, going to OR and other pertinent info. @ -Discharged home. See above for ED course. Undiagnosed new problem with uncertain prognosis? @ -No Drug Therapy requiring intensive monitoring for toxicity (Heparin, Nitro, Insulin, Cardizem)? @ -No Were any procedures done? @ -No Diagnosis/symptom? @ -Heart palpitations Acute, or Chronic, or Acute on Chronic? @ -Acute Uncomplicated (without systemic symptoms) or Complicated (systemic symptoms)? @ -default Side effects of treatment? @ -No Exacerbation, Progression, or Severe Exacerbation? @ -No Poses a threat to life or bodily function? How? (Chest pain, USA, PA, pneumonia, PE, COPD, DKA, ARF, appy, cholecystitis, CVA, Diverticulitis, Homicidal, Suicidal, threat to staff... and all critical care pts) @ -No Diagnosis/symptom? @ -PVCs Acute, or Chronic, or Acute on Chronic? @ -Acute Uncomplicated (without systemic symptoms) or Complicated (systemic symptoms)? @ -default Side effects of treatment? @ -none Exacerbation, Progression, or Severe Exacerbation] @ -no Poses a threat to life or bodily function? @ -no - Lab Data Result diagrams: 04/14/22 12:48 04/14/22 12:48 Lab Results 04/14/22 04/14/22 04/14/22 Range/Units 12:48 12:48 12:48 WBC 6.8 (3.8-10.6) k/uL RBC 4.21 (3.80-5.40) m/uL Hgb 13.0 (11.4-16.0) gm/dL Hct 38.8 (34.0-46.0) % MCV 92.2 (80.0-100.0) fL MCH 30.9 (25.0-35.0) pg MCHC 33.5 (31.0-37.0) g/dL RDW 12.1 (11.5-15.5) % Plt Count 268 (150-450) k/uL MPV 7.9 Neutrophils % 55 % Lymphocytes % 35 % Monocytes % 5 % Eosinophils % 2 % Basophils % 1 % Neutrophils # 3.8 (1.3-7.7) k/uL Lymphocytes # 2.4 (1.0-4.8) k/uL Monocytes # 0.3 (0-1.0) k/uL Eosinophils # 0.2 (0-0.7) k/uL Basophils # 0.1 (0-0.2) k/uL PT 10.0 (9.0-12.0) sec INR 0.9 (<1.2) APTT 24.1 (22.0-30.0) sec D-Dimer 0.58 (<0.60) mg/L FEU Sodium 139 (137-145) mmol/L Potassium 3.7 (3.5-5.1) mmol/L Chloride 109 H (98-107) mmol/L Carbon Dioxide 24 (22-30) mmol/L Anion Gap 6 mmol/L BUN 13 (7-17) mg/dL Creatinine 0.63 (0.52-1.04) mg/dL Est GFR (CKD-EPI)AfAm >90 (>60 ml/min/1.73 sqM) Est GFR (CKD-EPI)NonAf >90 (>60 ml/min/1.73 sqM) Glucose 95 (74-99) mg/dL Calcium 8.6 (8.4-10.2) mg/dL Magnesium 1.9 (1.6-2.3) mg/dL Total Bilirubin 0.4 (0.2-1.3) mg/dL AST 31 (14-36) U/L ALT 33 (4-34) U/L Alkaline Phosphatase 72 (38-126) U/L Troponin I (0.000-0.034) ng/mL Total Protein 7.9 (6.3-8.2) g/dL Albumin 4.3 (3.5-5.0) g/dL TSH 1.460 (0.465-4.680) mIU/L 04/14/22 Range/Units 12:48 WBC (3.8-10.6) k/uL RBC (3.80-5.40) m/uL Hgb (11.4-16.0) gm/dL Hct (34.0-46.0) % MCV (80.0-100.0) fL MCH (25.0-35.0) pg MCHC (31.0-37.0) g/dL RDW (11.5-15.5) % Plt Count (150-450) k/uL MPV Neutrophils % % Lymphocytes % % Monocytes % % Eosinophils % % Basophils % % Neutrophils # (1.3-7.7) k/uL Lymphocytes # (1.0-4.8) k/uL Monocytes # (0-1.0) k/uL Eosinophils # (0-0.7) k/uL Basophils # (0-0.2) k/uL PT (9.0-12.0) sec INR (<1.2) APTT (22.0-30.0) sec D-Dimer (<0.60) mg/L FEU Sodium (137-145) mmol/L Potassium (3.5-5.1) mmol/L Chloride (98-107) mmol/L Carbon Dioxide (22-30) mmol/L Anion Gap mmol/L BUN (7-17) mg/dL Creatinine (0.52-1.04) mg/dL Est GFR (CKD-EPI)AfAm (>60 ml/min/1.73 sqM) Est GFR (CKD-EPI)NonAf (>60 ml/min/1.73 sqM) Glucose (74-99) mg/dL Calcium (8.4-10.2) mg/dL Magnesium (1.6-2.3) mg/dL Total Bilirubin (0.2-1.3) mg/dL AST (14-36) U/L ALT (4-34) U/L Alkaline Phosphatase (38-126) U/L Troponin I <0.012 (0.000-0.034) ng/mL Total Protein (6.3-8.2) g/dL Albumin (3.5-5.0) g/dL TSH (0.465-4.680) mIU/L - EKG Data -: EKG Interpreted by Me EKG Comments: 12-lead Electrocardiogram Interpretation Note EKG was reviewed and interpreted by myself. 12-lead ECG performed at 1226 is interpreted by me as revealing normal sinus rhythm with PVCs present at a rate of 73 beats per minute. [place]on is normal. TX interval is 129 ms, QRS durations 100 ms, QTc is 414 ms.. There were no ST or T wave abnormalities to suggest myocardial ischemia or injury. R wave progression across the precordium was satisfactory. By my interpretation this EKG is non-diagnostic for acute ischemia. When compared with EKG from October 2020, only significant difference is the presence of PVCs. No other findings. Disposition Clinical Impression: PVCs (premature ventricular contractions), Heart palpitations Disposition: HOME SELF-CARE Condition: Good Instructions (If sedation given, give patient instructions): Heart Palpitations (ED), Premature Ventricular Contractions (ED) Is patient prescribed a controlled substance at d/c from ED?: No Referrals: Mitchel Mark MD [Primary Care Provider] - 1-2 days Time of Disposition: 14:20
[2022-04-14 14:59] VITALS: BP 134/76; PULSE 60; RESP 18; TEMP 98.2
== END 2022-04-14 14:55 | disposition home or self-care (01) ==
LOC: EC 12:15
DX: I49.3 Ventricular premature depolarization (principal); R00.2 Palpitations; Z87.891 Personal history of nicotine dependence
CPT/HCPCS: 36415; 71046; 80053; 83735; 84443; 84484; 85025; 85379; 85610; 85730; 93005; 99285

== ENCOUNTER → 2023-12-16 | Outpatient (CLI) | payer BC ==
--- NOTE | 2023-12-17 10:08 | NM ---
EXAMINATION TYPE: NM bone 3 phase DATE OF EXAM: 12/16/2023 COMPARISON: 1124 CLINICAL INDICATION: Female, 53 years old with history of Z96.641 PAIN IN RIGHT HIP; Triple phase bone scintigraphy was performed following the injection of 21.5 mCi Tc 99m MDP. Immedia te images and 4.5 hours post injection images acquired. FINDINGS: Right hip demonstrates evidence of arthroplasty. There is asymmetric mild subtle increase uptake of t he proximal femur near the greater trochanter near the intertrochanteric region but not along the dominguez m. There is no significant abnormal accumulation of radiotracer to suggest metastatic disease to the bon e or other significant abnormality. IMPRESSION: Mild uptake of the proximal right femur near the greater trochanter intertrochanteric emmett e that does not have the classic morphology of loosening no linear uptake along the stem. Findings po ssibly related to postsurgical change no evidence for loosening or infection. [facility], , 12/17/2023 10:06 AM
== END | disposition home or self-care (01) ==
LOC: RADNMMAIN 07:25
PROVIDERS: ATTEND Orthopaedic Surgery
DX: M25.551 Pain in right hip (principal); R93.7 Abnormal findings on diagnostic imaging of other parts of musculoskeletal system; Z96.641 Presence of right artificial hip joint
CPT/HCPCS: 78315; A9503

== ENCOUNTER → 2023-12-16 | Outpatient (CLI) | payer BC ==
[2023-12-16 11:21] LABS: HCT 41.6 % (37.2-46.3); HGB 13.6 g/dL (12.0-15.0); MCHC 32.7 g/dL (32.0-37.0); MCV 94.8 FL (80.0-97.0); Mean Platelet Volume 11.8 FL (9.5-12.2); NRBC Per 100 WBC 0 X 10*3/uL (0.00-0.01); Platelet Count 263 X 10*3/uL (140-440); RBC 4.39 X 10*6/uL (4.10-5.20); RDW 11.9 % (11.5-14.5); WBC 4.09 X 10*3/uL (4.50-10.00)
[2023-12-16 11:54] LABS: Erythrocyte Sedimentation Rate 9 mm/Hr (0-30)
== END | disposition home or self-care (01) ==
LOC: LABWHC1 07:48
PROVIDERS: ATTEND Orthopaedic Surgery
DX: Z00.00 Encounter for general adult medical examination without abnormal findings (principal)
CPT/HCPCS: 36415; 85027; 85652; 86140

== ENCOUNTER → 2024-07-06 | Outpatient (CLI) | payer BC ==
--- NOTE | 2024-07-06 13:33 | MM ---
Reason for Exam: Screening (asymptomatic). Last mammogram was performed 14 year(s) and 6 month(s) ago. Patient History: Menarche at age 12. First Full-Term at age 19. Postmenopausal. Patient used Hormonal Contraceptives for 1 year. Risk Values: Kaitlin 5 year model risk: 1.0%. NCI Lifetime model risk: 6.7%. Prior Study Comparison: 01/08/2010 Bilateral Screening Mammogram, [facility]. Tissue Density: The breasts are heterogeneously dense, which may obscure small masses. Findings: Analyzed By CAD. There is no suspicious group of microcalcifications or new suspicious mass in either breast. Overall Assessment: Negative, BI-RAD 1 Management: Screening Mammogram of both breasts in 1 year. . Patient should continue monthly self-breast exams. A clinical breast exam by your physician is recommended on an annual basis. This exam should not preclude additional follow-up of suspicious palpable abnormalities. Note on Kaitlin scores and lifetime risk: 1. A Kaitlin score greater than 3% is considered moderate risk. If this is the case, consider specialist referral to assess eligibility for a risk reducing agent. 2. If overall lifetime risk for the development of breast cancer is 20% or higher, the patient may qualify for future screening with alternating mammogram and breast MRI. [facility], , 07/06/2024 1:29 PM. Electronically signed and approved by: Noe Ritter M.D. Radiologis
--- NOTE | 2024-07-06 13:47 | BD ---
EXAMINATION TYPE: Axial Bone Density DATE OF EXAM: 07/06/2024 CLINICAL HISTORY: 53 years old Female. ICD-10 CODE: Z78.0 ASYMPTOMATIC MENOPAUSAL STA , Additional History: Height: 62.25 Weight: 157.0 FRAX RISK QUESTIONS: Alcohol (3 or more units per day): no Family History (Parent hip fracture): no Glucocorticoids (More than 3mos): no (Ex: prednisone, prednisolone, methylprednisolone, dexamethasone, and hydrocortisone). History of Fracture in Adulthood: no Secondary Osteoporosis: 1. Type 1 Diabetes: no 2. Hyperthyroidism: no 3. Menopause before 45: no 4. Malnutrition: no 5. Chronic liver disease: no Rheumatoid Arthritis: no Current Tobacco Use: no RISK FACTORS HISTORY OF: Hip Fracture (Right/Left): no Spine Fracture: no History of Wrist Fracture: no Surgery to Spine/Hip(right/left)/Wrist (right/left): RT Hip Replacement 2022 MEDICATIONS: Thyroid Medications: no Osteoporosis Medications: no EXAM MEASUREMENTS: Bone mineral densitometry was performed using the Silenseed System. Bone mineral density as measured about the Lumbar spine is: ----- L1-L4(G/cm2): 1.037 T Score Values are as follows: ----- L1: -1.5 ----- L2: -1.7 ----- L3: -1.7 ----- L4: -0.1 ----- L1-L4: -1.2 Z Score Values are as follows: ----- L1: -008-1.1 ----- L2: -1.1 ----- L3: 0.5 ----- L4: -0.6 ----- L1-L4: Baseline Study Bone mineral density about the L hip (g/cm2): 1.014 T Score values are as follows: -----L Neck: -0.5 -----L Total: 0.1 Z Score values are as follows: -----L Neck: 0.4 -----L Total: 0.6 BASELINE STUDY FRAX%s: The graph provided illustrates a 5.4 % chance for a major osteoporotic fx and a 0.02% chance for the hips probability for fx in 10 years time. IMPRESSION: Osteopenia (T Score between -2.5 and -1). There is slightly increased risk of fracture and the patient may be considered for treatment. Re-Screen 2-5 years. NOTE: T-SCORE=SD OF THE YOUNG ADULT MEAN. [facility], , 07/06/2024 1:45 PM
== END | disposition home or self-care (01) ==
LOC: RADMAMWWP 11:56
PROVIDERS: ATTEND Family Medicine
DX: Z12.31 Encounter for screening mammogram for malignant neoplasm of breast (principal); R92.333 Mammographic heterogeneous density, bilateral breasts; M85.89 Other specified disorders of bone density and structure, multiple sites; Z92.0 Personal history of contraception; Z78.0 Asymptomatic menopausal state
CPT/HCPCS: 77067; 77080